=== PATIENT | male | born 1975 | race Caucasian/White ===

== ENCOUNTER 2020-11-01 14:32 | Emergency (ER) | payer SELFPAY ==
[2020-11-01 14:36] VITALS: BP 148/94; PULSE 70; RESP 16; TEMP 36.8; O2SAT 94; BMI 24.4
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
[2020-11-01] MEDS: morphine 4 mg/mL SDV 1 mL IVP (14:42)
[2020-11-01 14:48] VITALS: BP 148/94; PULSE 63; RESP 15; O2SAT 93
[2020-11-01 15:09] LABS: Basophils # 0.1 10^3/uL (0.0-0.1); Basophils % 0.7 %; Eosinophils # 0.2 10^3/uL (0.0-0.8); Eosinophils % 0.9 %; Hematocrit 51.8 % (42.0-52.0); Hemoglobin 17.8 g/dL (11.7-16.6); Lymphocytes # 2.7 10^3/uL (0.8-4.8); Lymphocytes % 15.8 %; Mean Corpuscular HGB Conc 34.4 g/dL (30.0-36.0); Mean Corpuscular Hemoglobin 30.8 pg (28.0-34.0); Mean Corpuscular Volume 89.8 fL (80-94); Mean Platelet Volume 10.8 fL (7.4-10.4); Monocytes # 1.1 10^3/uL (0.2-0.9); Monocytes % 6.5 %; Neutrophils % 75.6 %; Nucleated Red Blood Cells % 0 %; Platelet Count 282 10^3/cmm (130-400); Red Blood Count 5.77 10^6/uL (4.1-5.3); Red Cell Distribution Width 13.2 % (12.1-15.1); White Blood Count 17.2 10^3/uL (4.0-10.0)
[2020-11-01 15:14] VITALS: BP 172/103; PULSE 76; O2SAT 97
[2020-11-01] MEDS: iohexol 350 mg/mL 100 mL Btl IV (15:18)
--- NOTE | 2020-11-01 15:33 | PC.PHAR ---
PT STATES HE TAKES NO RX OR OTC MEDICATIONS-PT STATES HE USES [facility] IN [facility] OUR SYSTEM-
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
[2020-11-01 15:50] LABS: Alanine Aminotransferase 22 U/L (0-41); Alkaline Phosphatase 77 IU/L (40-130); Anion Gap 14.6 (5-19); Aspartate Amino Transferase 22 U/L (0-40); Blood Urea Nitrogen 9 mg/dL (6-20); Calcium 8.5 mg/dL (8.5-10.5); Carbon Dioxide 27 mmol/L (22-29); Chloride 97 mmol/L (98-107); Globulin 2.8 g/dL (1.3-4.6); Glomerular Filtration Rate 72.4 mL/min (90-130); Glucose 137 mg/dL (65-115); Osmolality Calculated 281 mOsm/kg (285-295); Potassium 3.6 mmol/L (3.5-5.1); Sodium 135 mmol/L (136-145); Total Bilirubin 0.5 mg/dL (0.15-1.2); Total Protein 6.8 g/dL (6.6-8.7)
[2020-11-01 16:31] VITALS: BP 172/93; PULSE 87; RESP 17; O2SAT 98
[2020-11-01 17:09] LABS: Blood Urine 2+ (Negative); Glucose Urine UA Norm (Normal); Ketones Urine Negative (Negative); Nitrate Urine Negative (Negative); Protein Urine Neg (Negative); Specific Gravity, Urine 1.015 (1.005-1.030); Urine Appearance Clear (CLEAR); Urine Color Yellow (Yellow); pH Urine 5 (5-7)
[2020-11-01 17:10] LABS: Add Urine Microscopic? YES; Bilirubin Urine Neg (Negative); Leukocyte Esterase Urine Negative (Negative); Urobilinogen Urine Norm (Negative)
[2020-11-01 17:11] LABS: Add Urine Culture? No; RBC Urine RARE /hpf (0-2); WBC Urine 0-4 /hpf (0-5)
[2020-11-01 17:50] VITALS: PULSE 78; RESP 15; O2SAT 97
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
== END 2020-11-01 17:50 | disposition home or self-care (01) ==
PROVIDERS: Emergency Provider Family Medicine
DX: S21.211A Laceration without foreign body of right back wall of thorax without penetration into thoracic cavity, initial encounter (principal); T22.00XA Burn of unspecified degree of shoulder and upper limb, except wrist and hand, unspecified site, initial encounter; T24.002A Burn of unspecified degree of unspecified site of left lower limb, except ankle and foot, initial encounter; T20.05XA Burn of unspecified degree of scalp [any part], initial encounter; T31.0 Burns involving less than 10% of body surface; V68.0XXA Driver of heavy transport vehicle injured in noncollision transport accident in nontraffic accident, initial encounter; Y92.410 Unspecified street and highway as the place of occurrence of the external cause
CPT/HCPCS: 12001; 70450; 71260; 72125; 74177; 80053; 81001; 85025; 96374; 99284; J2270; Q9967